=== PATIENT | female | born 1945 | race Caucasian/White ===

== ENCOUNTER 2021-12-27 11:31 | Emergency (ER) | payer MEDICARE, OTHER, SELFPAY ==
--- NOTE | ~2021-12-27 | XR_ITS ---
EXAMINATION: XR chest 1V portable DATE: 12/27/2021 12:17 INDICATION: Shortness of breath TECHNIQUE: frontal view of the chest was obtained. COMPARISON: None FINDINGS: Pulmonary markings extend beyond a thin curvilinear line at the lateral right lung base which may rep resent a portion of one of the fissures. Mild increased interstitial pattern with small thickening in the right lower lung zone. 3.5 x 2.5 similar nodular opacity with smooth margins at the left hilum. No pleural effusion or pneumothorax. Heart size is normal. IMPRESSION: 1. Subtle increased interstitial pattern and mild bronchial wall thickening the right lower lung zone which could represent bronchitis or mild pulmonary edema. 2. 3.5 x 2.5 cm well-defined nodular opacity at the left hilum which could represent either enlarged pulmonary vasculature, lymphadenopathy or other pulmonary mass and would recommend further evaluation with chest CT, preferably with contrast. Reviewed, dictated and finalized at location A. IMPRESSION: 1. Subtle increased interstitial pattern and mild bronchial wall thickening the right lower lung zone which could represent bronchitis or mild pulmonary edema . 2. 3.5 x 2.5 cm well-defined nodular opacity at the left hilum which could repr esent either enlarged pulmonary vasculature, lymphadenopathy or other pulmonary mass and would recommend further evaluation with chest CT, preferably with con trast.
[2021-12-27 11:40] VITALS: BP 131/77; PULSE 63; RESP 24; TEMP 36.5; O2SAT 84
[2021-12-27 11:45] VITALS: PULSE 63; PULSE 64; RESP 22; RESP 24; O2SAT 97; O2SAT 99
--- NOTE | 2021-12-27 11:48 | ED.SOB ---
HPI - SOB/Dyspnea General Chief Complaint: Shortness of Breath/Dyspnea Stated Complaint: can not breath copd head cold Time Seen by Provider: 12/27/21 11:48 Source: patient History of Present Illness HPI Narrative: 76-year-old female, ex-smoker with a history of hypertension, anxiety / depression, chronic diarrhea, Negative cardiac stress test a few weeks ago, COPD on nocturnal oxygen presents, pulmonary nodules to the ER with -- shortness of breath which started 2 hours ago -- recent upper respiratory tract infection with sore throat and cough -- cough with purulent sputum no chest pain. No fever. No leg swelling. MD elicited complaint: shortness of breath and cough Pertinent past history: COPD Onset (ago): hour(s) ( Started 2 hours ago) Context: recent illness ( recent upper respiratory tract infection) Severity: moderate Exacerbating factors: nothing Relieving factors: nothing Known history of: COPD Associated symptoms: cough Treatment prior to arrival: none Related Data Home oxygen amount: 2 liters Home Medications Medication Instructions Recorded Confirmed albuterol sulfate [Ventolin HFA] 2 puff INHALATION QID PRN 12/27/21 12/27/21 amlodipine 10 mg PO DAILY 12/27/21 12/27/21 atenolol 100 mg PO DAILY 12/27/21 12/27/21 atorvastatin 10 mg PO DAILY 12/27/21 12/27/21 furosemide 20 mg PO DAILY 12/27/21 12/27/21 furosemide 40 mg PO DAILY 12/27/21 12/27/21 lisinopril 10 mg PO DAILY 12/27/21 12/27/21 trazodone 150 mg PO HS 12/27/21 12/27/21 Allergies Allergy/AdvReac Type Severity Reaction Status Date / Time No Known Allergies Allergy Verified 12/27/21 12:01 Review of Systems Review of Systems: All systems reviewed & are unremarkable except as noted in HPI and below Constitutional: Constitutional: Reports as per HPI and Reports no additional constitutional complaints Eyes: Eyes: Reports as per HPI and Reports no additional eye complaints ENT: Reports system reviewed and no additional complaints, except as documented and Reports sore throat Cardiovascular: Cardiovascular: Reports as per HPI and Reports no additional cardiovascular complaints Respiratory: Respiratory: Reports as per HPI, Reports no additional respiratory complaints, Reports cough and Reports dyspnea Gastrointestinal: Gastrointestinal: Reports as per HPI and Reports no additional gastrointestinal complaints Genitourinary: Genitourinary: Reports no additional female genitourinary complaints Musculoskeletal: Musculoskeletal: Reports no additional musculoskeletal complaints and Reports as per HPI Integumentary/Breasts: Skin/Breast: Reports system reviewed and no additional complaints, except as docu and Reports as per HPI Neurologic: Reports system reviewed and no additional complaints, except as documented Psychiatric: Psychiatric: Reports no additional psychiatric complaints and Reports as per HPI Endocrine: Endocrine: Reports no additional endocrine complaints and Reports as per HPI Hematologic/Lymphatic: Hematologic/Lymphatic: Reports no additional hematologic/lymphatic complaints and Reports as per HPI Allergic/Immunologic: Allergic/Immunologic: Reports no additional allergic/immunologic complaints and Reports as per HPI PMF Past Medical History Medical History Anxiety and depression Chronic diarrhea COPD (chronic obstructive pulmonary disease) Surgical History Surgical History History of bilateral tubal ligation Status post appendectomy Status post cataract extraction Status post cholecystectomy Exam Const: General: no acute distress Orientation/consciousness: patient oriented x3 HENMT: Head: normal to inspection Eyes: Conjunctivae: conjunctivae normal Pupils: Equal, round and reactive pupils present Neck: Neck: normal visual inspection, no lymphadenopathy and no meningeal signs Chest: Chest palpation & i
--- NOTE | 2021-12-27 12:07 | ECG_ITS ---
Measurements Intervals [place] Rate: 64 P: 71 LA: 128 QRS: 60 QRSD: 82 T: -15 QT: 427 QTc: 443 Interpretive Statements SINUS RHYTHM CANNOT RULE OUT PREVIOUS SEPTAL INFARCTION LOW QRS VOLTAGE IN PRECORDIAL LEADS [QRS DEFLECTION < 1.0 mV IN CHEST LEADS] NONSPECIFIC T-WAVE ABNORMALITY NO PREVIOUS ECG AVAILABLE FOR COMPARISON Electronically Signed On 12-28-2021 8:37:19 CDT by Kali Weller M.D.
[2021-12-27] MEDS: IPRATROPIUM 0.5 MG/ALBUTEROL SULFATE 2.5 MG AMPUL.NEB 3 ML INHALATION (12:15)
[2021-12-27 12:19] LABS: Basophils Absolute Auto 0.03 K/mm3 (0.00-0.10); Basophils Percent Auto 0.5 % (0.0-1.0); Eosinophils Absolute Auto 0.07 K/mm3 (0.02-0.50); Eosinophils Percent Auto 1.2 % (1.0-6.0); Hematocrit 36.3 % (35.0-42.0); Hemoglobin 11.6 g/dL (11.7-13.8); Immature Granulocyte Absolute 0.03 K/mm3 (0.00-0.00); Immature Granulocyte Percent A 0.5 % (0.0-0.0); Lymphocytes Absolute Auto 1.42 K/mm3 (1.10-4.50); Lymphocytes Percent Auto 24.2 % (18.0-42.0); Mean Corpuscular Hemoglobin 29.9 pg (27.0-31.0); Mean Corpuscular Volume 93.6 fL (78.0-102.0); Mean Platelet Volume 9.1 fl (9.2-11.8); Monocytes Absolute Auto 0.54 K/mm3 (0.10-0.90); Monocytes Percent Auto 9.2 % (2.0-11.0); Neutrophils Absolute Auto 3.8 K/mm3 (1.7-7.2); Neutrophils Percent Auto 64.4 % (50.0-70.0); Platelet Count Result 243 K/mm3 (150-420); Red Blood Count 3.88 M/mm3 (4.20-5.40); Red Cell Distribution Width 13.8 % (11.6-14.4); White Blood Count 5.9 K/mm3 (4.8-10.8)
[2021-12-27] MEDS: methylPREDNISolone SOD SUCC 125 MG VIAL IM (12:20)
[2021-12-27 12:33] LABS: Prothrombin Time 10.6 Seconds (9.50-12.10)
[2021-12-27 12:34] LABS: D Dimer 0.53 mg/L (0.19-0.50); Partial Thromboplastin Time 24.9 SEC (23.90-30.70)
[2021-12-27 12:36] LABS: SARS-CoV-2 Ag Negative (Negative)
[2021-12-27 12:42] LABS: Alanine Aminotransferase 17 U/L (14-59); Albumin Level 3.3 g/dL (3.4-5.0); Alkaline Phosphatase 114 U/L (46-116); Anion Gap 7 mmol/L (8-16); Aspartate Amino Transferase 19 U/L (15-37); Bilirubin,Total 0.3 mg/dL (0.00-1.00); Blood Urea Nitrogen 23 mg/dL (7-18); Calcium 9.6 mg/dL (8.5-10.1); Carbon Dioxide 32 mmol/L (21-32); Chloride 96 mmol/L (98-108); Estimated CRCL calculation 19 ml/min; Estimated Glomerular Filt Rate 29; Glucose 119 mg/dL (70-99); NT Pro B Type Natriuretic Pept 1239 pg/mL (0-450); Osmolality Calculated 284 mOsm/kg (285-295); Potassium 3.8 mmol/L (3.5-5.1); Sodium 135 mmol/L (136-145); Troponin I 15.9 ng/L (0.00-60.4)
[2021-12-27 12:45] VITALS: PULSE 65; RESP 20; O2SAT 96
[2021-12-27 12:54] VITALS: BP 111/58; PULSE 65; RESP 20; O2SAT 97
[2021-12-27] MEDS: AZITHROMYCIN 250 MG TABLET 500 MG PO (13:12)
[2021-12-27] MEDS: ENOXAPARIN 100 MG/ML SYRINGE 60 MG SUB-Q (13:20)
[2021-12-27 13:26] VITALS: BP 106/54; PULSE 67; RESP 22; TEMP 36.4; O2SAT 85
== END 2021-12-27 14:40 | disposition home or self-care (01) ==
PROVIDERS: Emergency Provider Internal Medicine Critical Care Medicine; PCP Family Medicine
DX: R91.1 Solitary pulmonary nodule (principal); J44.9 Chronic obstructive pulmonary disease, unspecified; R79.1 Abnormal coagulation profile; J18.9 Pneumonia, unspecified organism; I50.9 Heart failure, unspecified; Z20.822 Contact with and (suspected) exposure to COVID-19; I10 Essential (primary) hypertension
CPT/HCPCS: 36415; 71045; 80053; 83605; 83880; 84443; 84484; 85025; 85380; 85610; 85730; 87426; 93005; 94640; 96372; 99284; A9270; C9803; J1650; J2930

== ENCOUNTER 2021-12-28 14:59 | Outpatient (CLI) | payer MEDICARE, OTHER, SELFPAY ==
[2021-12-28] MEDS: ENOXAPARIN 60 MG/0.6 ML SYRINGE SUB-Q (15:15)
--- NOTE | 2021-12-28 15:27 | PC.NURSE ---
Patient came to floor with an order from ER MD Shell for Lovenox injection. Patient tolerated well.
== END 2021-12-28 15:00 | disposition home or self-care (01) ==
LOC: CHSTREATRM 15:03
PROVIDERS: PCP Family Medicine; Visit Provider Internal Medicine Critical Care Medicine
DX: R79.1 Abnormal coagulation profile (principal)
CPT/HCPCS: 96372; J1650

== ENCOUNTER 2021-12-29 10:34 | Outpatient (CLI) | payer MEDICARE, OTHER, SELFPAY ==
--- NOTE | ~2021-12-29 | XR_ITS ---
EXAMINATION: XR chest 2V DATE: 12/29/2021 11:12 INDICATION: Shortness of breath and positive d-dimer. TECHNIQUE: frontal and lateral views of the chest were obtained. COMPARISON: Chest radiograph dated 12/27/2021 FINDINGS: Minimal opacities at the bilateral lower lung zones. No pleural effusion or pneumothorax. Again seen is approximately 3 cm nodular opacity at the left hilum. Heart size is normal. Indeterminate 1.8 cm p eripherally sclerotic lesion at the proximal diaphysis of the left humerus. IMPRESSION: 1. Minimal bibasilar opacities which could represent atelectasis, minimal pulmonary edema, pulmonary infarct or pneumonia. 2. Approximately 3 cm nodular opacity at the left hilum which could represent enlarged pulmonary vasc ulature, lymphadenopathy or other potentially malignant pulmonary mass and would recommend further ev aluation with chest CT, preferably with contrast. 3. Indeterminate 1.8 cm peripherally sclerotic lesion at the proximal left humerus which could be eit her benign or malignant. Consider further evaluation with bone scan. Reviewed, dictated and finalized at location A. IMPRESSION: 1. Minimal bibasilar opacities which could represent atelectasis, minimal pulmo nary edema, pulmonary infarct or pneumonia. 2. Approximately 3 cm nodular opacity at the left hilum which could represent e nlarged pulmonary vasculature, lymphadenopathy or other potentially malignant p ulmonary mass and would recommend further evaluation with chest CT, preferably with contrast. 3. Indeterminate 1.8 cm peripherally sclerotic lesion at the proximal left babar malena which could be either benign or malignant. Consider further evaluation with bone scan.
--- NOTE | ~2021-12-29 | NM_ITS ---
EXAMINATION: NM pulmonary perfusion DATE: 12/29/2021 11:11 INDICATION: Shortness of breath. TECHNIQUE: 5.6 mCi Tc-99m MAA by intravenous route. Scintigraphic images of the chest were obtained. COMPARISON: Chest radiograph dated 12/29/2021 FINDINGS: There are moderate to large perfusion defects at the lingula and right middle lobe and a couple segme nts in both the left and right lower lobes. Moderate-sized perfusion defect at the anterior segment o f the right upper lobe and small defect in the intersegment the left upper lobe. These are all withou t corresponding radiographic correlate on the prior chest radiograph. IMPRESSION: 1. High probability for pulmonary embolism. Reviewed, dictated and finalized at location A.
== END 2021-12-29 10:35 | disposition home or self-care (01) ==
PROVIDERS: PCP Family Medicine; Visit Provider Internal Medicine Critical Care Medicine
DX: R79.1 Abnormal coagulation profile (principal)
CPT/HCPCS: 71046; 78580; A9540

== ENCOUNTER 2022-02-11 17:56 | Emergency (ER) | payer MEDICARE, OTHER, MEDICAID, SELFPAY ==
[2022-02-11] VITALS (11 sets, daily range): BP systolic 112–123; BP diastolic 62–68; PULSE 68–77; RESP 15–28; TEMP 36.3–36.6; O2SAT 94–98
--- NOTE | ~2022-02-11 | CT_ITS ---
EXAMINATION: CT diagnostic chest wo con DATE: 02/11/2022 19:09 INDICATION: Increased shortness of breath. TECHNIQUE: Computed tomography (CT) of the chest was performed without intravenous contrast. Automate d exposure control and iterative reconstruction technique were employed. The dose-length product was 145.91 mGy-cm. COMPARISON: X-ray chest 12/21/2021. FINDINGS: Thoracic aorta: Mild ectasia. Atherosclerotic calcification. Aortic valve calcification. Lung parenchyma and airways: Emphysematous change. Bronchial wall thickening in the lower lungs. Biba silar atelectasis/scar. Lobulated left hilar 3.3 cm mass, smooth margins, coarse central calcificatio n. Thoracic inlet, axillae and chest wall: Unremarkable. Mediastinum: Unremarkable. Heart and pericardium: Unremarkable. Coronary artery calcifications: Moderate. Pleura: No mass or fluid. Upper abdomen: No significant finding. Bones: No acute osseous finding. IMPRESSION: Pulmonary findings of bronchitis. No other acute process detected in the chest. Previously described left hilar mass has nonaggressive features. Previously described sclerotic lesion in the left humerus is not included in this examination and prior recommendation is unchanged. Reviewed, dictated and finalized at location K. IMPRESSION: Pulmonary findings of bronchitis. No other acute process detected in the chest. Previously described left hilar mass has nonaggressive features. Previously de scribed sclerotic lesion in the left humerus is not included in this examinatio n and prior recommendation is unchanged.
--- NOTE | 2022-02-11 18:04 | ECG_ITS ---
Measurements Intervals [place] Rate: 67 P: 97 NH: 136 QRS: 31 QRSD: 81 T: 30 QT: 391 QTc: 414 Interpretive Statements SINUS RHYTHM LOW QRS VOLTAGE IN PRECORDIAL LEADS BASELINE ARTIFACT- I, II, III, AVR, AVL, AVF, V1-V3 BORDERLINE ECG Electronically Signed On 02-11-2022 19:41:57 CDT by Keith Cotto D.O.
[2022-02-11] MEDS: IPRATROPIUM 0.5 MG/ALBUTEROL SULFATE 2.5 MG AMPUL.NEB 3 ML INHALATION (18:46)
[2022-02-11 18:59] LABS: Base Excess ABG 2.6 mmol/L (0-2); HCO3 ABG 26.4 mmol/L (23-29); Oxygen Content ABG 10.7 %vol (16.0-22.0); Oxygen Saturation ABG 93.6 % (95-97); PO2 ABG 68.3 mmHg (75-85); Total Hemoglobin 8.1 g/dL (12.0-18.0); pH ABG 7.47 (7.35-7.45)
--- NOTE | 2022-02-11 19:01 | ED.SOB ---
HPI - SOB/Dyspnea General Chief Complaint: Shortness of Breath/Dyspnea Stated Complaint: trouble breathing Time Seen by Provider: 02/11/22 17:58 Source: patient, family and RN notes reviewed Mode of arrival: ambulatory Limitations: no limitations History of Present Illness MD elicited complaint: shortness of breath and asthma attack Pertinent past history: COPD Onset (ago): day(s) (2) Timing: constant and progressively worsening Severity: moderate Exacerbating factors: exertion Relieving factors: oxygen and bronchodilators Known history of: COPD Associated symptoms: wheezing Treatment prior to arrival: oxygen Related Data Home oxygen amount: 2 liters Home Medications Medication Instructions Recorded Confirmed albuterol sulfate [Ventolin HFA] 2 puff INHALATION QID PRN 12/27/21 02/11/22 amlodipine 10 mg PO DAILY 12/27/21 02/11/22 atenolol 50 mg PO DAILY 12/27/21 02/11/22 atorvastatin 20 mg PO DAILY 12/27/21 02/11/22 furosemide 20 mg PO DAILY 12/27/21 02/11/22 furosemide 40 mg PO DAILY 12/27/21 02/11/22 lisinopril 10 mg PO DAILY 12/27/21 02/11/22 trazodone 150 mg PO HS 12/27/21 02/11/22 arformoterol 15 mcg INHALATION DAILY 02/11/22 02/11/22 budesonide 0.5 mg INHALATION DAILY 02/11/22 02/11/22 revefenacin [Yupelri] 175 mcg INHALATION DAILY 02/11/22 02/11/22 warfarin 5 mg PO DAILY 02/11/22 02/11/22 Allergies Allergy/AdvReac Type Severity Reaction Status Date / Time No Known Allergies Allergy Verified 02/11/22 18:15 Review of Systems Review of Systems: All systems reviewed & are unremarkable except as noted in HPI and below PMFSH Past Medical History Medical History Ankle edema, bilateral Anxiety and depression Chronic diarrhea COPD (chronic obstructive pulmonary disease) Surgical History Surgical History History of bilateral tubal ligation Status post appendectomy Status post cataract extraction Status post cholecystectomy Exam Const: General: no acute distress and alert Nutritional Appearance: well nourished Orientation/consciousness: patient oriented x3 Limitations: no limitations HENMT: Head: normal to inspection Ears: external ears normal, TM's normal bilaterally and EAC's normal General nose exam: Normal external nose present and Normal nares present Face and sinus: normal facial exam and sinuses nontender Mouth: Yes moist mucous membranes Eyes: Conjunctivae: conjunctivae normal Pupils: Equal, round and reactive pupils present EOM: EOMs intact bilaterally Neck: Neck: normal visual inspection and no lymphadenopathy Chest: Chest palpation & inspection: normal inspection of the chest Resp: Effort & Inspection: labored, retractions, tachypneic and uses accessory muscles Auscultation: rales, rhonchi and wheezes Cardio: Rate: regular rate Rhythm: regular rhythm GI: GI Palp: Yes Soft to palpation and No Tenderness to palpation present (GI) Auscultation: normal bowel sounds : General: Yes bladder normal to palpation and Yes no CVA tenderness Back/Spine/Pelvis: Back: no CVA tenderness Skin: General skin exam: normal color Rashes: no rashes Neuro: General: patient oriented x3, moves all extremities, no meningeal signs, no focal motor deficits and CN's II-XI intact bilaterally Extrem: General: edema (bilateral ankle and lower leg edema.) Psych: Mental Status: mental status grossly normal Affect: normal affect Attitude: cooperative Thought content: Yes Normal thought content present Course Course Emergency Course: Pt was stable in the ED, less SOB. Reevaluation(s) Date: 02/11/22 Time: 18:55 Vital Signs Vital signs: Vital Signs Temperature 36.6 C 02/11/22 18:00 Pulse Rate 72 02/11/22 18:00 Respiratory Rate 24 H 02/11/22 18:00 Blood Pressure 120/64 02/11/22 18:00 Pulse Oximetry 97 02/11/22 18:00 Temperature 36.6 C 02/11/22 18:00 Pulse Rate
[2022-02-11 19:03] LABS: Device NASAL CANNULA; Modified Allen's Test Pass; Site Drawn RIGHT RADIAL
[2022-02-11 19:04] LABS: Basophils Absolute Auto 0.08 K/mm3 (0.00-0.10); Basophils Percent Auto 1.1 % (0.0-1.0); Eosinophils Absolute Auto 0.66 K/mm3 (0.02-0.50); Eosinophils Percent Auto 9.5 % (1.0-6.0); Hematocrit 25.2 % (35.0-42.0); Hemoglobin 7.5 g/dL (11.7-13.8); Immature Granulocyte Absolute 0.02 K/mm3 (0.00-0.00); Immature Granulocyte Percent A 0.3 % (0.0-0.0); Lymphocytes Absolute Auto 2.29 K/mm3 (1.10-4.50); Lymphocytes Percent Auto 32.8 % (18.0-42.0); Mean Corpuscular HGB Conc 29.8 g/dL (32.0-36.0); Mean Corpuscular Hemoglobin 30.1 pg (27.0-31.0); Mean Corpuscular Volume 101.2 fL (78.0-102.0); Mean Platelet Volume 9.1 fl (9.2-11.8); Monocytes Absolute Auto 0.51 K/mm3 (0.10-0.90); Monocytes Percent Auto 7.3 % (2.0-11.0); Neutrophils Absolute Auto 3.4 K/mm3 (1.7-7.2); Platelet Count Result 358 K/mm3 (150-420); Red Blood Count 2.49 M/mm3 (4.20-5.40); Red Cell Distribution Width 16.1 % (11.6-14.4)
--- NOTE | 2022-02-11 19:07 | PC.NURSE ---
monitor Rhythm strip and monitor vital signs printed and placed in pt chart.
[2022-02-11] MEDS: methylPREDNISolone SOD SUCC 125 MG VIAL IV PUSH (19:17)
[2022-02-11] MEDS: FUROSEMIDE INJ 100 MG/10 ML VIAL 80 MG IV PUSH (19:18)
[2022-02-11 19:22] LABS: Lactic Acid Reflex 0.5 mmol/L (0.4-2.0)
[2022-02-11 19:23] LABS: Alanine Aminotransferase 29 U/L (14-59); Albumin Level 2.8 g/dL (3.4-5.0); Alkaline Phosphatase 167 U/L (46-116); Anion Gap 6 mmol/L (8-16); Aspartate Amino Transferase 24 U/L (15-37); Bilirubin,Total 0.2 mg/dL (0.00-1.00); Blood Urea Nitrogen 22 mg/dL (7-18); Calcium 8.9 mg/dL (8.5-10.1); Carbon Dioxide 29 mmol/L (21-32); Chloride 102 mmol/L (98-108); Estimated CRCL calculation 22 ml/min; Estimated Glomerular Filt Rate 29; Ethanol 4 mg/dL (0-6); Glucose 101 mg/dL (70-99); NT Pro B Type Natriuretic Pept 1735 pg/mL (0-450); Osmolality Calculated 287 mOsm/kg (285-295); Sodium 137 mmol/L (136-145); Total Protein 6.5 g/dL (6.4-8.2); Troponin I 14.4 ng/L (0.00-60.4)
[2022-02-11 19:50] LABS: Appearance Urine Clear (Clear); Bilirubin Urine Negative (Negative); Color Urine Light Yellow (Yellow); Glucose Urine UA Negative (Negative); Ketones Urine Negative (Negative); Leukocyte Esterase Ur Negative (Negative); Nitrate Urine Negative (Negative); Protein Urine Negative (Negative); Urobilinogen Urine 0.2 mg/dL (0.2-1.0)
[2022-02-11 19:55] LABS: Add Urine Microscopic? YES; Bacteria Urine Trace /hpf; Blood Urine Trace-Intact (Negative); RBC Urine 0-2 /hpf (0-2); Squamous Epithelial Cell Urine Rare /hpf (Few); WBC Urine 0-3 /hpf (0-3)
[2022-02-11 19:57] LABS: Amphetamine Screen Urine Negative (Negative); Barbiturate Screen Urine Negative (Negative); Benzodiazepines Screen Urine Negative (Negative); Cannabinoid Screen Urine Negative (Negative); Cocaine Screen Urine Negative (Negative); Methadone Screen Urine Negative (Negative); Opiate Screen Urine Negative (Negative); Phencyclidine Screen Urine Negative (Negative)
== END 2022-02-11 22:28 | disposition home or self-care (01) ==
PROVIDERS: Emergency Provider Emergency Medicine; PCP Family Medicine
DX: J44.1 Chronic obstructive pulmonary disease with (acute) exacerbation (principal); I50.42 Chronic combined systolic (congestive) and diastolic (congestive) heart failure; D64.9 Anemia, unspecified; Z79.899 Other long term (current) drug therapy
CPT/HCPCS: 36415; 36600; 71250; 80053; 80307; 81001; 82805; 83605; 83880; 84484; 85025; 87040; 93005; 94640; 96365; 96375; 99284; J0696; J1940; J2930

== ENCOUNTER 2022-05-25 12:38 | Outpatient (CLI) | payer MEDICARE, MEDICAID, SELFPAY ==
--- NOTE | ~2022-05-25 | DEXA_ITS ---
Bone Density Report Name: YANET HA Age: 76 Sex: Female Ethnicity: White Date of : 1945 Indication: postmenopausal; screening for osteoporosis; height loss; Referring Provider: GRETA*KENYA Bartlett Study: Bone densitometry was performed. Exam Date: May 25, 2022 Accession number: [id number] Bone Density: Region BMD T-score Z-score Classification AP Spine(L1, L3, L4) 0.960 -0.8 1.6 Normal Femoral Neck (Left) 0.498 -3.2 -1.1 Osteoporosis Total Hip (Left) 0.618 -2.7 -0.9 Osteoporosis Femoral Neck (Right) 0.550 -2.7 -0.6 Osteoporosis Total Hip (Right) 0.641 -2.5 -0.7 Osteoporosis Femoral Neck Mean 0.524 -2.9 -0.8 Osteoporosis Total Hip Mean 0.630 -2.6 -0.8 Osteoporosis World Health Organization criteria for BMD impression classify patients as: Normal (T-score at or above -1.0), Osteopenia (T-score between -1.0 and -2.5), or Osteoporosis (T-score at or below -2.5). 10-year Fracture Risk: FRAX not reported because: Some T-score for Spine Total or Hip Total or Femoral Neck at or below -2.5 Clinical Information Provided by Patient: Patient maximum height was 61 Menopause Age: 51 No regular weight bearing exercise Does not regularly consume dairy products Drinks caffeinated beverages Onset of menses at age 15 Number of children 2 Impression: The patient has osteoporosis, based on the Left Femoral Neck T-score. Discussion: INCREASED RISK OF FRACTURE. BONE DENSITY IS UNDESIRABLY LOW AT ONE OR MORE SKELETAL SITES, CONSISTENT WITH POSTMENOPAUSAL OSTEOPOROSIS. This patient's lowest T-score meets the World Health Organization's (WHO) criteria for osteoporosis at one or more sites (T-score -2.5 or below). In untreated patients, the risk of osteoporotic fracture increases approximately two-fold for each 1.0 SD decrease in T-score. Low bone density is not the only risk factor for fracture; also consider factors such as patient's age, frailty or poor health, risk of falling, risk of injury, previous osteoporotic fracture, family history of osteoporosis, cigarette smoking, low body weight, etc. Not everyone with low bone mineral density has osteoporosis; osteomalacia and other metabolic bone disorders should also be considered. Patients who have osteoporosis should be evaluated for specific diseases and conditions (secondary causes) that may cause or contribute to bone loss. The [place] [employer] (AACE) and National Osteoporosis Foundation (NOF) recommend pharmacologic intervention for all postmenopausal women whose T-score is in this range. The patient should follow a healthful lifestyle (good nutrition with adequate calcium and vitamin D, and appropriate weight-bearing exercise). Follow-Up: Consider a repeat BMD and Vertebral Fracture Assessment (V
--- NOTE | ~2022-05-25 | MM_ITS ---
EXAMINATION: MM screening orion BI w tova HISTORY: Screening TECHNIQUE: Craniocaudal and mediolateral oblique 3-D tomosynthesis images were obtained and synthetic 2-D images were generated. CAD analysis was submitted and interpreted. COMPARISON: No prior mammogram is available for comparison at this institution. BREAST PARENCHYMAL COMPOSITION: There are scattered areas of fibroglandular density. FINDINGS: There is no evidence of suspicious mass, calcification, or architectural distortion to sugg est malignancy in either breast. There has been no suspicious interval change. IMPRESSION: 1. No mammographic evidence of malignancy. 2. Recommend routine screening mammography in one year. BI-RADS Category 1: Negative Reviewed, dictated and finalized at location A.
== END 2022-05-25 12:39 | disposition home or self-care (01) ==
LOC: CHSIMG 12:42
PROVIDERS: PCP Family Medicine; Visit Provider Registered Nurse
DX: Z78.0 Asymptomatic menopausal state (principal); Z12.31 Encounter for screening mammogram for malignant neoplasm of breast
CPT/HCPCS: 77063; 77067; 77080